=== PATIENT | male | born 1985 | race Caucasian/White ===

== ENCOUNTER → 2020-10-17 | Outpatient (CLI) | payer OTHER ==
--- NOTE | 2020-10-20 07:37 | PFR/MVV ---
[facility] [place] [address] PULMONARY FUNCTION MVV/REPORT Name: JAZCHICHI HOSKINS Room #: REG [facility]#: [id number] Admission: 10/17/20 Attend Phys: Wm Oquendo DO Discharge: Date of : 89 Report #: [id number] THIS REPORT FOR: //name// >> SPIROMETRY: (BTPS) Height: in cm Weight: lbs kg Exam Date: PRE-RX POST-RX PRED BEST %PRED BEST %PRED %CHG FVC LITERS . . . . . . FEV1 LITERS . . . . . . FEV1/FVC % . . . . . . APH25-53% L/Sec . . . . . . PEF L/SEC . . . . . . FEF50/FIF50 UNITLESS . . . . . . MVV L/Min . . . f 1/Min . . . >> LUNG VOLUMES: (BTPS) PRE-RX POST-RX PRED AVG %PRED AVG %PRED %CHG VC Liters . . . . . . TLC Liters . . . . . . RV Liters . . . . . . RV/TLC % . . . . . . FRC PL Liters . . . . . . FRC N2 Liters . . . . . . ERV Liters . . . . . . IC Liters . . . . . . >> DIFFUSION: DLCO ml/Min/mmHg . . . . . . DL Heidi ml/Min/mmHg . . . . . . DLCO/VA ml/Min/mmHg . . . . . . VA Liters . . . . . . COMMENTS: COMMENTS: >> RESISTANCE: [facility] [address] [place] [address] PULMONARY FUNCTION MVV/REPORT Name: REJICHICHIKIMBERLEY MENDOZA Room #: REG [facility].#: [id number] Admission: 10/17/20 Attend Phys: Wm Oquendo DO Discharge: Date of : 89 Report #: [id number] PRE-RX PRED AVG %PRED Raw Total cmH20/L/Sec . . . Raw Insp cmH20/L/Sec . . . Raw Exp cmH20/L/Sec . . . Raw cmH20/L/Sec . . . Gaw L/Sec/cmH20 . . . sRaw cmH20 Sec . . . sGaw l/cmH20 Sec . . . Vtq Liters . . . # = OUTSIDE 95% CONFIDENCE INTERVAL CALIBRATION: PRED: 3.00 ACTUAL: EXP 3.01 INSP 3.02 [facility]-OL01-07 [facility]- N-[id number] >> INTERPRETATION/IMPRESSION: DATE OF SERVICE: 10/17/2020 ATTENDING PHYSICIAN: Dr. Michael Mccall. SPIROMETRY: FEV1 is 2.19 liters (52%), FVC is 2.91 liters (53%), FEV1/FVC ratio is 75%. LUNG VOLUMES: Total lung capacity is 5.73 liters (78%). IC to ERV ratio is 2.60 liters to 0.65 liters. Diffusing capacity is 72% and normal. IMPRESSION: Pulmonary function studies would be suggestive of a restrictive airflow process. There is no significant response to bronchodilator therapy. However, his FEV1 ranges are variable and do not meet ATS criteria for reproducibility. Test was noted to have poor effort in regards to performance. Please correlate clinically. No official impression rendered. <ELECTRONICALLY SIGNED> By: Alejandro Hightower MD 10/20/20 0737 Alejandro Hightower MD /nt
== END ==
LOC: PUL 08:54
PROVIDERS: ATTEND Chiropractor
DX: R06.02 Shortness of breath (principal)

== ENCOUNTER → 2021-05-11 | Outpatient (CLI) | payer OTHER ==
--- NOTE | 2021-05-11 11:49 | 2DMMODE ---
[facility] [place] [address] 2 D/M-MODE ECHOCARDIOGRAM Name: CHICHI MENDOZA Room #: REG [facility] Brenna#: [id number] Admission: 05/11/21 Attend Phys: Wm Giron Discharge: Date of : 89 Report #: [id number] THIS REPORT FOR: cc: FAM - Family physician unknown FAM - Family physician unknown Ag Oleary MD [facility] ~ APPROVED REPORT Study performed: 05/11/2021 11:12:37 EXAM: Comprehensive 2D, Doppler, and color-flow Echocardiogram Patient Location: Out-Patient Status: routine BSA: 2.09 HR: 62 bpm BP: 120/74 mmHg Rhythm: NSR Other Information Study Quality: Good Indications Chest Pain 2D Dimensions RVDd: 37.18 mm IVSd: 6.92 (7-11mm) LVOT Diam: 21.92 (18-24mm) LVDd: 48.81 mm PWd: 8.25 (7-11mm) Ascending Ao: 26.59 (22-36mm) LVDs: 33.13 (25-40mm) Left Atrium: 35.94 (27-40mm) Aortic Root: 30.89 mm Volumes Left Atrial Volume (Systole) Single Plane 4CH: 21.81 mL Single Plane 2CH: 40.57 mL LA ESV Index: 17.00 mL/m2 Aortic Valve AoV Peak Marvin.: 1.27 m/s AO Peak Gr.: 6.42 mmHg LVOT Max P.70 mmHg LVOT Max V: 0.96 m/s JEANNE Vmax: 2.86 cm2 [facility] [address] [place] [address] 2 D/M-MODE ECHOCARDIOGRAM Name: CHICHI MENDOZA Room #: REG [facility]#: [id number] Admission: 05/11/21 Attend Phys: Wm Chan Discharge: Date of : 89 Report #: [id number] Mitral Valve E/A Ratio: 1.3 MV Decel. Time: 190.96 ms MV E Max Marvin.: 0.72 m/s MV A Marvin.: 0.57 m/s MV PHT: 55.38 ms IVRT: 78.43 ms Pulmonary Valve PV Peak Marvin.: 1.15 m/s PV Peak Gr.: 5.33 mmHg Pulmonary Vein P Vein S: 0.39 m/s P Vein A: 0.32 m/s P Vein D: 0.61 m/s P Vein A Dur.: 124.6 msec P Vein S/D Ratio: 0.64 Tricuspid Valve TR Peak Marvin.: 2.11 m/s RAP Estimate: 5.00 mmHg TR Peak Gr.: 18.00 mmHg PA Pressure: 23.00 mmHg Left Ventricle The left ventricle is normal size. There is normal LV segmental wall motion. There is normal left ventricular wall thickness. Left ventricular systolic function is normal. LVEF is 60%. The left ventricular diastolic function is normal. Right Ventricle The right ventricle is normal size. The right ventricular systolic function is normal. Atria The left atrium size is normal. The right atrium size is normal. Aortic Valve The aortic valve is normal in structure. No aortic regurgitation is present. There is no aortic valvular stenosis. Mitral Valve The mitral valve is normal in structure. There is no mitral valve regurgitation noted. No evidence of mitral valve stenosis. Tricuspid Valve The tricuspid valve is normal in structure. Trace tricuspid [facility] [address] [place] [address] 2 D/M-MODE ECHOCARDIOGRAM Name: CHICHI MENDOZA Room #: REG [facility].#: [id number] Admission: 05/11/21 Attend Phys: Wm Chan Discharge: Date of : 89 Report #: [id number] regurgitation. Estimated pulmonary artery pressure of 25mmHg. Pulmonic Valve The pulmonary valve is normal in structure. Trace pulmonic regurgitation. Great Vessels The aortic root is normal in size. The ascending aorta is normal in size. IVC is normal in size and collapses >50% with inspiration. Pericardium There is no pericardial effusion. <Conclusion> Left ventricular systolic function is normal. There is normal LV segmental wall motion. LVEF is 60%. Normal diastolic function The aortic valve is normal in structure. No aortic regurgitation or stenosis The mitral valve is normal in structure. No mitral valve regurgitation Trace tricuspid regurgitation. Estimated pulmonary artery pressure of 25mmHg. There is no pericardial effusion. <ELECTRONICALLY SIGNED> By: Ag Oleary MD, FACC 05/11/21 1149 [id number] [id number] Ag Oleary MD, FACC /INF
== END ==
LOC: CV 09:44
PROVIDERS: ATTEND Chiropractor
DX: R07.9 Chest pain, unspecified (principal)